=== PATIENT | male | born 1965 ===

== ENCOUNTER 2022-05-09 17:41 | Emergency (ER) | payer OTHER ==
[2022-05-09 17:57] VITALS: TEMP 98.4
--- NOTE | 2022-05-09 19:26 | US ---
EXAMINATION TYPE: US venous doppler duplex LE RT DATE OF EXAM: 05/09/2022 7:00 PM COMPARISON: NONE CLINICAL HISTORY: red and swollen. Edema, redness and pain right foot SIDE PERFORMED: right TECHNIQUE: The lower extremity deep venous system is examined utilizing real time linear array sonog michelle with graded compression, doppler sonography and color-flow sonography. VESSELS IMAGED: Common Femoral Vein Deep Femoral Vein Greater Saphenous Vein * Femoral Vein Popliteal Vein Small Saphenous Vein * Proximal Calf Veins (* superficial vessels) Right Leg: no evidence of DVT as visualized. Grayscale, color doppler, spectral doppler imaging performed of the deep veins of the lower extremiti es. There is normal flow, compressibility, vascular waveforms. IMPRESSION: No evidence of DVT in the right lower extremity.
--- NOTE | 2022-05-09 19:38 | ED ---
Extremity Problem HPI - General Chief complaint: Extremity Problem,Nontraumatic Stated complaint: R foot swelling Time Seen by Provider: 05/09/22 19:29 Source: patient Mode of arrival: ambulatory Limitations: no limitations - History of Present Illness Initial comments: Patient is a 57-year-old male who presents to the emergency room with complaints of painful and swollen right foot. He reports that he started to have pain in his foot approximately 7-10 days ago and approximately 2 days ago it began swelling extensively. He denies any fevers, chills, numbness, tingling, chest pain or shortness of breath. He denies having any wounds or lesions to his leg. He has no DVT or PE a history. He is a diabetic and only has one kidney. He also has a past medical history significant for hypertension. He is not currently on any antibiotic therapy. He denies any other complaints or concerns at this time. - Related Data Previous Rx's Medication Instructions Recorded clindamycin HCL [Cleocin] 300 mg PO Q6HR 10 Days #40 cap 05/09/22 Allergies Allergy/AdvReac Type Severity Reaction Status Date / Time No Known Allergies Allergy Verified 05/09/22 17:57 Review of Systems ROS Statement: Those systems with pertinent positive or pertinent negative responses have been documented in the HPI. ROS Other: All systems not noted in ROS Statement are negative. Past Medical History Past Medical History: Diabetes Mellitus, Hypertension, Renal Disease History of Any Multi-Drug Resistant Organisms: None Reported Additional Past Surgical History / Comment(s): 1 kidney Past Psychological History: No Psychological Hx Reported Smoking Status: Never smoker Past Alcohol Use History: None Reported Past Drug Use History: None Reported General Exam Limitations: no limitations Course Vital Signs 05/09/22 17:53 Temperature 98.4 F Pulse Rate 94 Respiratory 18 Rate Blood Pressure 149/95 O2 Sat by Pulse 96 Oximetry Medical Decision Making - Medical Decision Making Due to concerns for unilateral swelling Doppler checked to rule out DVT and negative. Suspect cellulitis in the setting of diabetes and single kidney status high risk for severe infection. Will check x-ray to rule out osteomyelitis. Will check CBC and CMP along with lactic acid to determine infectious process standing and renal function for antibiotic therapy. Patient requesting medication for pain will give dose of IV morphine and monitor. Son at bedside with patient. Pain improved with dose of morphine return. Will give additional dose of morphine. Labs without leukocytosis. Mild dehydration noted along with chronic kidney disease. X-rays of right foot and ankle negative for osteomyelitis. Will give dose of Rocephin IV and sent home on oral clindamycin in the setting of CKD status with single kidney. Signs and symptoms of worsening infection, uremia and sepsis reviewed at length with patient and son. Return parameters discussed at length. Will discharge home with close follow-up with his primary care provider on oral antibiotics along with a Tylenol 3 starter pack and surgical shoe to utilize for increased foot swelling. Unable to diurese due to renal status. Case discussed with Dr. Camargo - Lab Data Result diagrams: 05/09/22 19:30 05/09/22 19:30 Lab Results 05/09/22 05/09/22 05/09/22 Range/Units 19:30 19:30 19:30 WBC 9.2 (3.8-10.6) k/uL RBC 4.46 (4.30-5.90) m/uL Hgb 12.8 L (13.0-17.5) gm/dL Hct 39.4 (39.0-53.0) % MCV 88.5 (80.0-100.0) fL MCH 28.8 (25.0-35.0) pg MCHC 32.5 (31.0-37.0) g/dL RDW 13.2 (11.5-15.5) % Plt Count 454 H (150-450) k/uL MPV 8.0 Neutrophils % 73 % Lymphocytes % 14 % Monocytes % 8 % Eosinophils % 4 % Basophils % 1 % Neutrophils # 6.7 (1.3-7.7) k/uL Lymphocytes # 1.3 (1.0-4.8) k/uL Monocytes # 0.8 (0-1.0) k/uL Eosinophils # 0.3 (0-0.7) k/uL Basophils # 0.1 (0-0.2) k/uL Sodium 137 (137-145) mmol/L Potassium 5.2 H (3.5-5.1) mmol/L Chloride 103 (98-107) mmol/L Carbon Dioxide 22 (22-30) mmol/L Anion Gap 12 mmol/L BUN 37 H (9-20) mg/dL Creatinine 1.56 H (0.66-1.25) mg/dL Est GFR (CKD-EPI)AfAm 56 (>60 ml/min/1.73 sqM) Est GFR (CKD-EPI)NonAf 48 (>60 ml/min/1.73 sqM) Glucose 183 H (74-99) mg/dL Plasma Lactic Acid Faheem 1.1 (0.7-2.0) mmol/L Calcium 9.0 (8.4-10.2) mg/dL Total Bilirubin 0.8 (0.2-1.3) mg/dL AST 35 (17-59) U/L ALT 27 (4-49) U/L Alkaline Phosphatase 126 (38-126) U/L Total Protein 7.3 (6.3-8.2) g/dL Albumin 4.0 (3.5-5.0) g/dL - Radiology Data Radiology results: report reviewed, image reviewed Ultrasound venous Doppler duplex lower extremity right with no evidence of DVT in the right lower extremity Disposition Clinical Impression: Cellulitis Disposition: HOME SELF-CARE Condition: Stable Instructions (If sedation given, give patient instructions): Cellulitis (ED), Chronic Kidney Disease (ED) Additional Instructions: Please complete oral antibiotics as prescribed. Please utilize Tylenol 3's for p ain as needed. Do not use NSAIDs in the setting of renal dysfunction. Please follow-up with your primary care provider soon. Utilize surgical shoe provided to help prevent restrictions from footwear. Elevate lower extremity when possible. Low-salt diet encouraged. Please return to the emergency room if any fevers, worsening of swelling or pain, signs or symptoms of dehydration nausea or vomiting. Please return to the Emergency Department if symptoms worsen or any other concerns. Prescriptions: clindamycin HCL [Cleocin] 300 mg PO Q6HR 10 Days #40 cap Is patient prescribed a controlled substance at d/c from ED?: No Referrals: Nonstaff,Physician [Primary Care Provider] - 1-2 days Time of Disposition: 22:15
[2022-05-09 20:33] LABS: Basophils # (A) 0.1 k/uL (0-0.2); Basophils % (A) 1 %; Eosinophils # (A) 0.3 k/uL (0-0.7); Eosinophils % (A) 4 %; HCT 39.4 % (39.0-53.0); HGB 12.8 gm/dL (13.0-17.5); Lymphocytes # (A) 1.3 k/uL (1.0-4.8); Lymphocytes % (A) 14 %; MCH 28.8 pg (25.0-35.0); MCHC 32.5 g/dL (31.0-37.0); MCV 88.5 fL (80.0-100.0); Monocytes # (A) 0.8 k/uL (0-1.0); Monocytes % (A) 8 %; Neutrophils # (A) 6.7 k/uL (1.3-7.7); Neutrophils % (A) 73 %; Platelet Count 454 k/uL (150-450); RBC 4.46 m/uL (4.30-5.90); RDW 13.2 % (11.5-15.5); WBC 9.2 k/uL (3.8-10.6)
[2022-05-09 20:36] LABS: Potassium 5.2 mmol/L (3.5-5.1); Total Bilirubin 0.8 mg/dL (0.2-1.3); Total Protein 7.3 g/dL (6.3-8.2)
[2022-05-09] MEDS ORDERED: MORPHINE SULFATE 2 MG/ML SYRINGE IVP STA ×2 (20:36→21:51)
--- NOTE | 2022-05-09 21:28 | XR ---
EXAMINATION TYPE: XR ankle complete RT, XR foot limited RT DATE OF EXAM: 05/09/2022 9:02 PM INDICATION: Patient age:Male; 57 years old; Reason for study: swelling pain COMPARISON: None TECHNIQUE: The right ankle is imaged in frontal lateral and oblique projections. Additional evaluatio n of the foot with frontal lateral and oblique views. FINDINGS: There is no evidence of acute osseous pathology. The joint spaces are well-preserved without evidenc e of subluxation or dislocation. Kager's fat pad is intact. Mild soft tissue swelling around the ankl e. No radiopaque foreign bodies are identified. Calcaneal plantar spurring is present. IMPRESSION: 1. No evidence of acute fracture. 2. Subcutaneous swelling around the ankle likely secondary to underlying soft tissue injury.
[2022-05-09] MEDS ORDERED: cefTRIAXone IN SWFI 1,000 MG/10 ML SYRINGE IVP STA (21:51)
[2022-05-09] MEDS ORDERED: ACET/COD 300 MG/30 MG STARTER PACK 6 TAB BTL PO STA (21:53)
[2022-05-09 22:32] VITALS: BP 154/91; PULSE 86; RESP 16
== END 2022-05-09 22:32 | disposition home or self-care (01) ==
LOC: EC 17:41
DX: L03.115 Cellulitis of right lower limb (principal); I10 Essential (primary) hypertension; E11.9 Type 2 diabetes mellitus without complications
CPT/HCPCS: 36415; 80053; 83605; 85025; 73610; 73620; 93971; 99283; 96374; 96375; 96376; J0696; J2270

== ENCOUNTER 2022-05-12 13:58 | Emergency (ER) | payer OTHER ==
[2022-05-12 14:21] VITALS: RESP 18
--- NOTE | 2022-05-12 16:39 | ED ---
General Adult HPI - General Chief complaint: Extremity Problem,Nontraumatic Stated complaint: foot pain Time Seen by Provider: 05/12/22 16:22 Source: patient Mode of arrival: wheelchair Limitations: no limitations - History of Present Illness Initial comments: Dictation was produced using [employer] dictation software. please excuse any grammatical, word or spelling errors. Chief Complaint: 57-year-old male presents to the emergency department for ankle pain History of Present Illness: Patient is a 49-year-old male who has past medical history of diabetes, solitary kidney. He was seen here in the emergency department 3 days ago for ankle pain and redness. He had a workup that was negative. He was treated with clindamycin. States that his redness is slightly improved. Patient states he just ran out of Tylenol 3's. He states that pain is severe enough to prevent him from sleeping. He however feels like he is slightly improved since being on antibiotics. Patient is visiting from [place]. He is been here in [place] for the last 6 weeks visiting his son who is here currently to help his grandparents. Patient denies any constitutional symptoms. The ROS documented in this emergency department record has been reviewed and confirmed by me. Those systems with pertinent positive or negative responses have been documented in the HPI. All other systems are other negative and/or noncontributory. PHYSICAL EXAM: General Impression: Alert and oriented x3, not in acute distress HEENT: Normocephalic atraumatic, extra-ocular movements intact, pupils equal and reactive to light bilaterally, mucous membranes moist. Cardiovascular: Heart regular rate and rhythm Chest: Able to complete full sentences, no retractions, no tachypnea Abdomen: abdomen soft, non-tender, non-distended, no organomegaly Musculoskeletal: Pulses present and equal in all extremities, no peripheral edema Right ankle: There is mild blanching redness to the right lateral ankle area, nonindurated. It is slightly tender to palpation. Ankle joint mobility is intact without any antalgia. Slightly warm to touch. Motor: no focal deficits noted Neurological: CN II-XII grossly intact, no focal motor or sensory deficits noted Skin: Intact with no visualized rashes Psych: Normal affect and mood ED course: A 67-year-old diabetic solitary kidney male presents emergency department for right ankle pain. Seen here 3 days ago diagnosed with right lower extremity cellulitis. Patient was discharged at that time with clindamycin and started pack for Tylenol with codeine. Vital signs upon arrival are within acceptable limits. Laboratory evaluation obtained. CBC. Metabolic panel is within acceptable limits. His renal markers appear to be better than 3 days ago. CRP is elevated 8.9. Sports diagnosis of cellulitis. Believe clindamycin is reasonable antibiotic option. Disposition options were discussed. He overall feels comfor table being discharged since he feels as though his symptomatology is improved. Patient however would benefit from analgesic prescription. Patient is with his son and has no issues return to emergency department if his symptomatology gets worse. - Related Data Previous Rx's Medication Instructions Recorded clindamycin HCL [Cleocin] 300 mg PO Q6HR 10 Days #40 cap 05/09/22 HYDROcodone/APAP 5-325MG [[place] 1 tab PO Q6HR PRN 3 Days #12 tab 05/12/22 5-325] Allergies Allergy/AdvReac Type Severity Reaction Status Date / Time No Known Allergies Allergy Verified 05/12/22 14:21 Review of Systems ROS Statement: Those systems with pertinent positive or pertinent negative responses have been documented in the HPI. ROS Other: All systems not noted in ROS Statement are negative. Past Medical History Past Medical History: Diabetes Mellitus, Hypertension, Renal Disease History of Any Multi-Drug Resistant Organisms: None Reported Additional Past Surgical History / Comment(s): 1 kidney Past Psychological History: No Psychological Hx Reported Smoking Status: Never smoker Past Alcohol Use History: None Reported Past Drug Use History: None Reported General Exam Limitations: no limitations Course Vital Signs 05/12/22 14:18 Temperature 98.1 F Pulse Rate 92 Respiratory 18 Rate Blood Pressure 145/85 O2 Sat by Pulse 97 Oximetry Medical Decision Making - Lab Data Result diagrams: 05/12/22 16:50 05/12/22 16:50 Lab Results 05/12/22 05/12/22 Range/Units 16:50 16:50 WBC 9.3 (3.8-10.6) k/uL RBC 4.46 (4.30-5.90) m/uL Hgb 13.0 (13.0-17.5) gm/dL Hct 40.3 (39.0-53.0) % MCV 90.3 (80.0-100.0) fL MCH 29.2 (25.0-35.0) pg MCHC 32.4 (31.0-37.0) g/dL RDW 13.3 (11.5-15.5) % Plt Count 477 H (150-450) k/uL MPV 7.2 Neutrophils % 74 % Lymphocytes % 15 % Monocytes % 8 % Eosinophils % 2 % Basophils % 0 % Neutrophils # 6.9 (1.3-7.7) k/uL Lymphocytes # 1.4 (1.0-4.8) k/uL Monocytes # 0.7 (0-1.0) k/uL Eosinophils # 0.2 (0-0.7) k/uL Basophils # 0.0 (0-0.2) k/uL Sodium 138 (137-145) mmol/L Potassium 5.4 H (3.5-5.1) mmol/L Chloride 103 (98-107) mmol/L Carbon Dioxide 22 (22-30) mmol/L Anion Gap 13 mmol/L BUN 22 H (9-20) mg/dL Creatinine 1.38 H (0.66-1.25) mg/dL Est GFR (CKD-EPI)AfAm 65 (>60 ml/min/1.73 sqM) Est GFR (CKD-EPI)NonAf 56 (>60 ml/min/1.73 sqM) Glucose 131 H (74-99) mg/dL Calcium 10.0 (8.4-10.2) mg/dL C-Reactive Protein 8.9 H (<1.0) mg/dL Disposition Clinical Impression: Cellulitis Disposition: HOME SELF-CARE Condition: Fair Instructions (If sedation given, give patient instructions): Cellulitis (ED) Prescriptions: HYDROcodone/APAP 5-325MG [[place] 5-325] 1 tab PO Q6HR PRN 3 Days #12 tab PRN Reason: Severe Pain Is patient prescribed a controlled substance at d/c from ED?: Yes If prescribed controlled substance>3 days was MAPS reviewed?: Prescribed <3 Days Referrals: Madelin Crespo MD [REFERRING] - 1-2 days
[2022-05-12 17:07] LABS: Basophils % (A) 0 %; Eosinophils # (A) 0.2 k/uL (0-0.7); Eosinophils % (A) 2 %; HCT 40.3 % (39.0-53.0); Lymphocytes # (A) 1.4 k/uL (1.0-4.8); Lymphocytes % (A) 15 %; MCH 29.2 pg (25.0-35.0); MCHC 32.4 g/dL (31.0-37.0); MCV 90.3 fL (80.0-100.0); Mean Platelet Volume 7.2; Monocytes # (A) 0.7 k/uL (0-1.0); Monocytes % (A) 8 %; Neutrophils # (A) 6.9 k/uL (1.3-7.7); Neutrophils % (A) 74 %; Platelet Count 477 k/uL (150-450); RBC 4.46 m/uL (4.30-5.90); RDW 13.3 % (11.5-15.5); WBC 9.3 k/uL (3.8-10.6)
[2022-05-12 17:51] LABS: C Reactive Protein 8.9 mg/dL (<1.0); Potassium 5.4 mmol/L (3.5-5.1)
[2022-05-12] MEDS ORDERED: MORPHINE SULFATE 4 MG/ML SYRINGE IV STA (17:59)
[2022-05-12] MEDS ORDERED: ACET/COD 300 MG/30 MG STARTER PACK 6 TAB BTL PO STA (18:00)
[2022-05-12 18:36] VITALS: BP 130/80; PULSE 87; TEMP 98.2
== END 2022-05-12 18:34 | disposition home or self-care (01) ==
LOC: EC 13:58
DX: L03.115 Cellulitis of right lower limb (principal); E11.9 Type 2 diabetes mellitus without complications; I10 Essential (primary) hypertension
CPT/HCPCS: 36415; 80048; 85025; 86140; 99283; 96374; J2270

== ENCOUNTER 2022-06-11 01:22 | Emergency (ER) | payer OTHER ==
[2022-06-11 01:45] VITALS: TEMP 97.5
[2022-06-11 02:21] LABS: Basophils % (A) 0 %; Eosinophils # (A) 0.2 k/uL (0-0.7); Eosinophils % (A) 3 %; HCT 36.2 % (39.0-53.0); Lymphocytes # (A) 0.8 k/uL (1.0-4.8); Lymphocytes % (A) 9 %; MCH 28.4 pg (25.0-35.0); MCHC 31.7 g/dL (31.0-37.0); MCV 89.4 fL (80.0-100.0); Mean Platelet Volume 8.6; Monocytes # (A) 0.7 k/uL (0-1.0); Monocytes % (A) 8 %; Neutrophils % (A) 79 %; Platelet Count 233 k/uL (150-450); RBC 4.05 m/uL (4.30-5.90); RDW 14.5 % (11.5-15.5); WBC 8.8 k/uL (3.8-10.6)
[2022-06-11 02:28] LABS: HGB 11.5 gm/dL (13.0-17.5)
[2022-06-11 02:31] LABS: Albumin 3.5 g/dL (3.5-5.0); Calcium 8.2 mg/dL (8.4-10.2); Magnesium 1.1 mg/dL (1.6-2.3); Potassium 4.7 mmol/L (3.5-5.1); Total Bilirubin 1.6 mg/dL (0.2-1.3); Total Protein 6.8 g/dL (6.3-8.2)
--- NOTE | 2022-06-11 02:43 | XR ---
EXAMINATION TYPE: XR chest 2V DATE OF EXAM: 06/11/2022 COMPARISON: NONE HISTORY: Chest pain TECHNIQUE: 2 view FINDINGS: There is some linear density at the left lung base. The other lung pitt are clear. Heart and mediastinum are normal. There are no hilar masses. Bony thorax is intact. IMPRESSION: There is some mild linear infiltrate and atelectasis left lung base. Normal heart.
[2022-06-11 02:49] LABS: Partial Thromboplastin Time 25.7 sec (22.0-30.0)
[2022-06-11] MEDS ORDERED: SODIUM CHLORIDE 0.9% 1,000 ML IV ONE (03:14)
[2022-06-11] MEDS ORDERED: SODIUM CHLORIDE 0.9% 500 ML 500 ML IV ONE (03:16)
[2022-06-11] MEDS ORDERED: HYDROmorphone 0.5 MG/0.5 ML SYRINGE IVP STA (04:56)
--- NOTE | 2022-06-11 07:40 | ED ---
Chest Pain HPI - General Source: patient Mode of arrival: ambulatory Limitations: no limitations - History of Present Illness MD Complaint: chest pain -: hour(s) Onset: during rest Pain Location: epigastric Pain Radiation: none Severity: moderate Quality: dull Consistency: intermittent Improves With: nothing Worsens With: inspiration, movement Context: recent surgery Treatments Prior to Arrival: none <Janes Camargo - Last Filed: 06/11/22 07:36> <Jesus Buckley - Last Filed: 06/11/22 10:40> - General Chief Complaint: Chest Pain Stated Complaint: Chest Pain, Difficulty Breathing, Hands Numb Time Seen by Provider: 06/11/22 03:31 - History of Present Illness Initial Comments: This patient is a 57-year-old man with history of laparoscopic cholecystectomy proximally 2 days ago who presents with complaints of epigastric and low substernal pains. He states that he did come on after he arrived home from the hospital. He had been discharged yesterday. The patient had been seen here initially and transferred to [facility] as there was no GI coverage here. He was suspected to have choledocholithiasis. Patient states that he did have some imaging studies that subsequently did not find stone, and he underwent laparoscopic cholecystectomy. He had been doing much better on and was discharged in the morning. Patient states that over the course of the afternoon and evening the medication that he was prescribed was not helping. Now he is having epigastric and pain along the costal margins, mainly worse when he breathes. (Janes Camargo) - Related Data Home Medications Medication Instructions Recorded Confirmed Aspirin 81 mg PO HS 06/05/22 06/11/22 Atorvastatin Calcium [Lipitor] 40 mg PO HS 06/05/22 06/11/22 Dulaglutide [Trulicity] 3 mg SQ FR 06/05/22 06/11/22 lisinopriL [Zestril] 20 mg PO HS 06/05/22 06/11/22 metFORMIN HCL 1,000 mg PO BID 06/05/22 06/11/22 Allergies Allergy/AdvReac Type Severity Reaction Status Date / Time No Known Allergies Allergy Verified 06/11/22 09:50 Review of Systems ROS Other: All systems not noted in ROS Statement are negative. Constitutional: Denies: fever, chills Respiratory: Denies: cough, dyspnea Cardiovascular: Reports: as per HPI, chest pain. Denies: palpitations, edema, syncope Gastrointestinal: Reports: abdominal pain. Denies: nausea, vomiting, diarrhea Genitourinary: Denies: dysuria, hematuria Musculoskeletal: Denies: back pain Skin: Denies: rash Neurological: Denies: headache, weakness <RamanJanes - Last Filed: 06/11/22 07:36> ROS Other: All systems not noted in ROS Statement are negative. <Jesus Buckley - Last Filed: 06/11/22 10:40> ROS Statement: Those systems with pertinent positive or pertinent negative responses have been documented in the HPI. Past Medical History Past Medical History: Diabetes Mellitus, Hypertension, Renal Disease Additional Past Medical History / Comment(s): Cellulitis History of Any Multi-Drug Resistant Organisms: None Reported Past Surgical History: Cholecystectomy Additional Past Surgical History / Comment(s): left nephrectomy Past Psychological History: No Psychological Hx Reported Smoking Status: Never smoker Past Alcohol Use History: None Reported Past Drug Use History: None Reported <RamanJanes - Last Filed: 06/11/22 07:36> General Exam Limitations: no limitations General appearance: alert, in no apparent distress Head exam: Present: atraumatic, normocephalic Eye exam: Present: normal appearance. Absent: scleral icterus, conjunctival injection ENT exam: Present: normal oropharynx Neck exam: Present: normal inspection, full ROM Respiratory exam: Present: normal lung sounds bilaterally. Absent: respiratory distress, wheezes, rales, rhonchi, stridor Cardiovascular Exam: Present: regular rate, normal rhythm, normal heart sounds. Absent: systolic murmur, diastolic murmur, rubs, gallop GI/Abdominal exam: Present: soft. Absent: distended, tenderness, guarding, rebound, rigid, mass Extremities exam: Present: normal inspection, normal capillary refill. Absent: pedal edema, calf tenderness Back exam: Present: normal inspection. Absent: CVA tenderness (R), CVA tenderness (L) Neurological exam: Present: alert Skin exam: Present: warm, dry, intact, normal color. Absent: rash <RamanJanes - Last Filed: 06/11/22 07:36> Course Vital Signs 06/11/22 06/11/22 01:42 08:42 Temperature 97.5 F L Pulse Rate 80 65 Respiratory 18 20 Rate Blood Pressure 159/93 142/60 O2 Sat by Pulse 96 94 L Oximetry Chest Pain [facility] <Jesus Buckley - Last Filed: 06/11/22 10:40> - [facility] Patient care signed out to me by previous shift physician. Briefly, patient is 49-year-old male presents to the emergency room for shortness of breath. Patient just discharged from [facility]. 2 days ago he had lap is A cholecystectomy. Parents was to follow-up with pending nuclear medicine scan to evaluate for pulmonary embolism. Pulmonary perfusion imaging shows a very low probability for PE. Patient reevaluated bedside at 10:45 AM found to be stable medical condition. Laboratory markers are within acceptable limits. Patient advised to follow up with primary care doctor in surgeon for postoperative follow-up. (Jesus Buckley) Disposition <Janes Camargo - Last Filed: 06/11/22 07:36> Is patient prescribed a controlled substance at d/c from ED?: No Time of Disposition: 10:40 <Jesus Buckley - Last Filed: 06/11/22 10:40> Clinical Impression: Dyspnea Disposition: HOME SELF-CARE Condition: Good Instructions (If sedation given, give patient instructions): Dyspnea (ED) Referrals: None,Stated [Primary Care Provider] - 1-2 days
[2022-06-11 08:46] VITALS: RESP 20
--- NOTE | 2022-06-11 09:27 | NM ---
EXAMINATION TYPE: NM pul vent and perfuse DATE OF EXAM: 06/11/2022 COMPARISON: Radiograph same day HISTORY: 57-year-old male shortness of breath, assess for PE TECHNIQUE: Utilizing inhalation of 69.3 mCi Tc 99m DTPA aerosol and intravenous injection of 5.4 mCi of Tc 99m MAA, ventilation and perfusion images are acquired post injection in multiple projections. FINDINGS: Normal radiotracer distribution is noted in the lungs. There is no evidence of mismatched defects. IMPRESSION: Very low probability for pulmonary embolus.
[2022-06-11 10:58] VITALS: BP 124/75; PULSE 66
== END 2022-06-11 10:59 | disposition home or self-care (01) ==
LOC: EC 01:22
DX: R06.00 Dyspnea, unspecified (principal); R07.81 Pleurodynia; E11.9 Type 2 diabetes mellitus without complications; I10 Essential (primary) hypertension; Z79.82 Long term (current) use of aspirin; Z79.899 Other long term (current) drug therapy; Z79.84 Long term (current) use of oral hypoglycemic drugs
CPT/HCPCS: 99285; 96374; 96361; 36415; 93005; 85379; 83880; 80053; 83735; 84484; 85025; 85610; 85730; 71046; 78582; A9540; A9567; J1170

== ENCOUNTER 2023-06-10 08:02 | Emergency (ER) | payer OTHER ==
[2023-06-10] MEDS ORDERED: SODIUM CHLORIDE 0.9% 500 ML 500 ML IV STA (08:17)
--- NOTE | 2023-06-10 08:19 | ED ---
General Adult HPI - General Chief complaint: Abdominal Pain Stated complaint: Abd/Back R Side pain Time Seen by Provider: 06/10/23 08:09 Source: patient, RN notes reviewed, old records reviewed Mode of arrival: ambulatory Limitations: no limitations - History of Present Illness Initial comments: This is a 58-year-old male who presents emergency Department complaining of right CVA tenderness. Patient states his been ongoing a week. When I asked if it radiated around to his abdomen he did not even the nursing notes indicate that he told them it radiated to his right lower quadrant. I asked him on multiple occasions and he stated he did not want to his abdomen. Patient stated that he only has one kidney and is on the right. Patient also states she's had a history of urinary tract infections. Patient states she does have some dysuria no hematuria no urinary frequency. Patient denies any fever chills per patient denies any nausea vomiting. - Related Data Home Medications Medication Instructions Recorded Confirmed Aspirin 81 mg PO HS 06/05/22 06/11/22 Previous Rx's Medication Instructions Recorded Atorvastatin Calcium [Lipitor] 40 mg PO HS #30 tab 12/30/22 Cephalexin [Keflex] 500 mg PO Q6HR 1 Days #40 tab 12/30/22 Dulaglutide [Trulicity] 3 mg SQ FR 30 Days #30 each 12/30/22 lisinopriL [Zestril] 20 mg PO HS 30 Days #30 tab 12/30/22 metFORMIN HCL 1,000 mg PO BID 30 Days #60 tab 12/30/22 Allergies Allergy/AdvReac Type Severity Reaction Status Date / Time No Known Allergies Allergy Verified 06/10/23 08:08 Review of Systems ROS Statement: Those systems with pertinent positive or pertinent negative responses have been documented in the HPI. ROS Other: All systems not noted in ROS Statement are negative. Past Medical History Past Medical History: Diabetes Mellitus, Hypertension, Renal Disease Additional Past Medical History / Comment(s): Cellulitis History of Any Multi-Drug Resistant Organisms: None Reported Past Surgical History: Cholecystectomy Additional Past Surgical History / Comment(s): left nephrectomy Past Psychological History: No Psychological Hx Reported Smoking Status: Never smoker Past Alcohol Use History: None Reported Past Drug Use History: None Reported General Exam - General Exam Comments Initial Comments: GENERAL: Patient is well-developed and well-nourished. Patient is nontoxic and well- hydrated and is in mild distress. ENT: Neck is soft and supple. No significant lymphadenopathy is noted. Oropharynx is clear. Moist mucous membranes. Neck has full range of motion without eliciting any pain. EYES: The sclera were anicteric and conjunctiva were pink and moist. Extraocular movements were intact and pupils were equal round and reactive to light. Eyelids were unremarkable. PULMONARY: Unlabored respirations. Good breath sounds bilaterally. No audible rales rhonchi or wheezing was noted. CARDIOVASCULAR: There is a regular rate and rhythm without any murmurs gallops or rubs. ABDOMEN: Soft and nontender with normal bowel sounds. No palpable organomegaly was noted. There is no palpable pulsatile mass. SKIN: Skin is clear with no lesions or rashes and otherwise unremarkable. NEUROLOGIC: Patient is alert and oriented x3. Cranial nerves II through XII are grossly intact. Motor and sensory are also intact. Normal speech, volume and content. Symmetrical smile. MUSCULOSKELETAL: Normal extremities with adequate strength and full range of motion. No lower extremity swelling or edema. No calf tenderness. Patient has CVA tenderness on the right LYMPHATICS: No significant lymphadenopathy is noted PSYCHIATRIC: Normal psychiatric evaluation. Limitations: no limitations Course Vital Signs 06/10/23 06/10/23 06/10/23 08:06 08:28 09:08 Temperature 98.8 F 98.7 F Pulse Rate 70 69 70 Respiratory 18 17 17 Rate Blood Pressure 145/84 128/85 127/83 O2 Sat by Pulse 98 96 95 Oximetry 06/10/23 10:02 Temperature Pulse Rate 68 Respiratory 18 Rate Blood Pressure 125/88 O2 Sat by Pulse 98 Oximetry Medical Decision Making - Medical Decision Making Was pt. sent in by a medical professional or institution (, PA, TWISTING OPERATOR, urgent care, hospital, or jail...) When possible be specific @ -No Did you speak to anyone other than the patient for history (EMS, parent, family, police, friend...)? What history was obtained from this source @ -No Did you review nursing and triage notes (agree or disagree)? Why? @ -I reviewed and agree with nursing and triage notes Were old charts reviewed (outside hosp., previous admission, EMS record, old EKG, old radiological studies, urgent care reports/EKG's, jail records)? Report findings @ -No old charts were reviewed Differential Diagnosis (chest pain, altered mental status, abdominal pain women, abdominal pain men, vaginal bleeding, weakness, fever, dyspnea, syncope, headache, dizziness, GI bleed, back pain, seizure, CVA, palpatations, mental health, musculoskeletal)? @ -Differential Back Pain: Strain, zoster, cauda equina syndrome, epidural abscess, vertebral osteomyelitis, discitis, fracture, subluxation, disc herniation, DJD, spinal stenosis, dissection, AAA, pancreatitis, peptic ulcer disease, pyelonephritis, kidney stone, this is not meant to be an all-inclusive list. EKG interpreted by me (3pts min.). @ -As above X-rays interpreted by me (1pt min.). @ -None done CT interpreted by me (1pt min.). @ -None done U/S interpreted by me (1pt. min.). @ -None done What testing was considered but not performed or refused? (CT, X-rays, U/S, labs)? Why? @ -None What meds were considered but not given or refused? Why? @ -None Did you discuss the management of the patient with other professionals (solange nicholas i.chano Whitehead, PA, TWISTING OPERATOR, lab, RT, psych nurse, social services manager, surgeon partner, teacher, strategic intelligence officer, sample case porter)? Give summary @ -No Was smoking cessation discussed for >3mins.? @ -No Was critical care preformed (if so, how long)? @ -No Were there social determinants of health that impacted care today? How? (Homelessness, low income, unemployed, alcoholism, drug addiction, transportation, low edu. Level, literacy, decrease access to med. care, long term, rehab)? @ -No Was there de-escalation of care discussed even if they declined (Discuss DNR or withdrawal of care, Hospice)? DNR status @ -No What co-morbidities impacted this encounter? (DM, HTN, Smoking, COPD, CAD, Cancer, CVA, ARF, Chemo, Hep., AIDS, mental health diagnosis, sleep apnea, morbid obesity)? @ -None Was patient admitted / discharged? Hospital course, mention meds given and route, prescriptions, significant lab abnormalities, going to OR and other pertinent info. @ -Pain was reproducible on palpation. Patient states a follow-up with his primary medical care doctor Undiagnosed new problem with uncertain prognosis? @ -No Drug Therapy requiring intensive monitoring for toxicity (Heparin, Nitro, Insulin, Cardizem)? @ -No Were any procedures done? @ -No Diagnosis/symptom? @ -Lower back pain Acute, or Chronic, or Acute on Chronic? @ -Acute Uncomplicated (without systemic symptoms) or Complicated (systemic symptoms)? @ -Uncomplicated Side effects of treatment? @ -No Exacerbation, Progression, or Severe Exacerbation? @ -No Poses a threat to life or bodily function? How? (Chest pain, [place], [place], pneumonia, PE, COPD, DKA, ARF, appy, cholecystitis, CVA, Diverticulitis, Homicidal, Suicidal, threat to staff... and all critical care pts) @ -No - Lab Data Result diagrams: 06/10/23 08:06/10/23 08: Lab Results 06/10/23 06/10/23 06/10/23 Range/Units 08:23 08: 08:23 WBC 6.3 (3.8-10.6) k/uL RBC 5.01 (4.30-5.90) m/uL Hgb 14.7 (13.0-17.5) gm/dL Hct 43.3 (39.0-53.0) % MCV 86.4 (80.0-100.0) fL MCH 29.4 (25.0-35.0) pg MCHC 34.0 (31.0-37.0) g/dL RDW 13.5 (11.5-15.5) % Plt Count 210 (150-450) k/uL MPV 9.0 Neutrophils % 59 % Lymphocytes % 27 % Monocytes % 7 % Eosinophils % 4 % Basophils % 1 % Neutrophils # 3.7 (1.3-7.7) k/uL Lymphocytes # 1.7 (1.0-4.8) k/uL Monocytes # 0.5 (0-1.0) k/uL Eosinophils # 0.3 (0-0.7) k/uL Basophils # 0.1 (0-0.2) k/uL Sodium 137 (137-145) mmol/L Potassium 4.7 (3.5-5.1) mmol/L Chloride 104 (98-107) mmol/L Carbon Dioxide 24 (22-30) mmol/L Anion Gap 9 mmol/L BUN 24 H (9-20) mg/dL Creatinine 1.28 H (0.66-1.25) mg/dL Est GFR (CKD-EPI)AfAm 70 (>60 ml/min/1.73 sqM) Est GFR (CKD-EPI)NonAf 61 (>60 ml/min/1.73 sqM) Glucose 112 H (74-99) mg/dL Calcium 9.1 (8.4-10.2) mg/dL Total Bilirubin 1.8 H (0.2-1.3) mg/dL AST 28 (17-59) U/L ALT 33 (4-49) U/L Alkaline Phosphatase 63 (38-126) U/L Total Protein 7.4 (6.3-8.2) g/dL Albumin 4.6 (3.5-5.0) g/dL Amylase 86 (30-110) U/L Lipase 289 (23-300) U/L Urine Color Yellow Urine Appearance Clear (Clear) Urine pH 5.0 (5.0-8.0) Ur Specific [place] 1.016 (1.001-1.035) Urine Protein Trace H (Negative) Urine Glucose (UA) Negative (Negative) Urine Ketones Negative (Negative) Urine Blood Negative (Negative) Urine Nitrite Negative (Negative) Urine Bilirubin Negative (Negative) Urine Urobilinogen <2.0 (<2.0) mg/dL Ur Leukocyte Esterase Negative (Negative) Disposition Clinical Impression: Lower back pain Disposition: HOME SELF-CARE Condition: Good Instructions (If sedation given, give patient instructions): Low Back Strain (ED) Is patient prescribed a controlled substance at d/c from ED?: No Referrals: None,Stated [REFERRING] - 1-2 days Time of Disposition: 10:24
[2023-06-10 08:42] LABS: Appearance,Urine Clear (Clear); Basophils # (A) 0.1 k/uL (0-0.2); Basophils % (A) 1 %; Bilirubin,Urine Negative (Negative); Blood,Urine Negative (Negative); Color,Urine Yellow; Eosinophils # (A) 0.3 k/uL (0-0.7); Eosinophils % (A) 4 %; Glucose,Urine (UA) Negative (Negative); HCT 43.3 % (39.0-53.0); HGB 14.7 gm/dL (13.0-17.5); Ketones,Urine Negative (Negative); Leukocyte Esterase,Urine Negative (Negative); Lymphocytes # (A) 1.7 k/uL (1.0-4.8); Lymphocytes % (A) 27 %; MCH 29.4 pg (25.0-35.0); MCV 86.4 fL (80.0-100.0); Monocytes # (A) 0.5 k/uL (0-1.0); Monocytes % (A) 7 %; Neutrophils # (A) 3.7 k/uL (1.3-7.7); Neutrophils % (A) 59 %; Nitrite,Urine Negative (Negative); Platelet Count 210 k/uL (150-450); Protein,Urine Trace (Negative); RBC 5.01 m/uL (4.30-5.90); RDW 13.5 % (11.5-15.5); Specific Gravity,Urine 1.016 (1.001-1.035); Urobilinogen,Urine <2.0 mg/dL (<2.0); WBC 6.3 k/uL (3.8-10.6)
[2023-06-10 09:07] LABS: ALT 33 U/L (4-49); AST 28 U/L (17-59); African American GFR (CKD) 70 (>60 ml/min/1.73 sqM); Albumin 4.6 g/dL (3.5-5.0); Alkaline Phosphatase 63 U/L (38-126); Amylase 86 U/L (30-110); Anion Gap 9 mmol/L; Blood Urea Nitrogen 24 mg/dL (9-20); Calcium 9.1 mg/dL (8.4-10.2); Carbon Dioxide 24 mmol/L (22-30); Chloride 104 mmol/L (98-107); Glucose 112 mg/dL (74-99); Lipase 289 U/L (23-300); Non-African American GFR(CKD) 61 (>60 ml/min/1.73 sqM); Potassium 4.7 mmol/L (3.5-5.1); Sodium 137 mmol/L (137-145); Total Bilirubin 1.8 mg/dL (0.2-1.3); Total Protein 7.4 g/dL (6.3-8.2)
[2023-06-10 10:03] VITALS: BP 125/88; PULSE 68; RESP 18
[2023-06-10 10:54] VITALS: TEMP 98.5
== END 2023-06-10 10:54 | disposition home or self-care (01) ==
LOC: EC 08:02
DX: M54.50 Low back pain, unspecified (principal); E11.9 Type 2 diabetes mellitus without complications; I10 Essential (primary) hypertension; Z90.49 Acquired absence of other specified parts of digestive tract; Z79.82 Long term (current) use of aspirin
CPT/HCPCS: 36415; 80053; 81003; 82150; 83690; 85025; 96360; 99284